=== PATIENT | male | born 1985 | race Caucasian/White ===

== ENCOUNTER 2021-04-01 17:03 | Emergency (ER) | payer SELFPAY ==
[2021-04-01] MEDS ORDERED: methylPREDNISolone Sod Succ/PF 125 MG/2 ML VIAL ONE (17:09)
[2021-04-01] MEDS ORDERED: Famotidine/PF 20 mg/2ml Vial ONE (17:09)
[2021-04-01] MEDS ORDERED: diphenhydrAMINE 50 MG/ML VIAL ONE (17:09)
[2021-04-01 17:19] LABS: #Basophils 0.1 thou/uL (0.0-0.2); #Eosinphils 0.1 thou/uL (0.0-0.7); #Lymphocytes 2.7 thou/uL (1.20-3.40); #Monocytes 0.5 thou/uL (0.11-0.59); #Neutrophils 11.7 thou/uL (1.40-6.50); %Basophils 0.6 % (0.0-1.0); %Eosinophils 0.4 % (0.0-10.0); %Lymphocytes 17.9 % (21.0-51.0); %Monocytes 3.5 % (0.0-10.0); %Neutrophils 77.6 % (42.0-75.0); Hemoglobin 16.9 g/dL (14.0-18.0); Mean Corpuscular Hemoglobin 29.7 pg (27.0-31.0); Mean Corpuscular Volume 89.9 fL (78.0-98.0); Mean Platelet Volume 7.5 fL (7.4-10.4); Platelet Count 328 thou/uL (130-400); RBC Distribution Width 11.9 % (11.5-14.5); Red Blood Cell (RBC) Count 5.69 mill/uL (4.70-6.10)
[2021-04-01] MEDS ORDERED: Ondansetron PF 4 MG/2 ML Vial ONE (17:22)
[2021-04-01 17:38] LABS: ALT (SGPT) 40 U/L (8-55); AST (SGOT) 33 U/L (5-34); Albumin 5.2 g/dL (3.5-5.0); Alkaline Phosphatase 105 U/L (40-110); Anion Gap 18 mmol/L (10-20); BUN (Urea Nitrogen) 18 mg/dL (8.9-20.6); Bilirubin, Total 0.6 mg/dL (0.2-1.2); Calc. Creatinine Clearance 0 mL/min (70-130); Calcium 10.7 mg/dL (7.8-10.44); Carbon Dioxide 22 mmol/L (22-29); Chloride 105 mmol/L (98-107); Glucose 135 mg/dL (70-105); Protein, Total 9.2 g/dL (6.0-8.3); Sodium 142 mmol/L (136-145)
== END 2021-04-01 20:45 | disposition home or self-care (01) ==
LOC: ERS 17:03
DX: T63.441A Toxic effect of venom of bees, accidental (unintentional), initial encounter (principal)
CPT/HCPCS: 80053; 83690; 85025; 93005; 96372; 96374; 96375; J0500; J1200; J2405; J2930; S0028

== ENCOUNTER 2022-03-31 00:21 | Emergency (ER) | payer SELFPAY | END 2022-03-31 01:00 | disposition home or self-care (01) | LOC: ERS 00:21 | DX: L60.0 Ingrowing nail (principal); S39.011A Strain of muscle, fascia and tendon of abdomen, initial encounter; X58.XXXA Exposure to other specified factors, initial encounter | CPT/HCPCS: 99283 ==